=== PATIENT | male | born 1970 | race Caucasian/White ===

== ENCOUNTER 2016-08-26 10:02 | Inpatient (IN) ==
[2016-08-24 18:04] LABS: Basophils # (Auto) 0 K/mcL (0.0-0.3); Basophils % (Auto) 0.3 % (0.0-2.0); Eosinophils # (Auto) 0.3 K/mcL (0.0-0.7); Eosinophils % (Auto) 2.3 % (0.0-7.0); Granulocytes % (Auto) 62.2 % (38.0-78.0); Lymphocytes # (Auto) 2.7 K/mcL (1.5-4.8); Lymphocytes % (Auto) 22.2 % (15.5-49.0); Mean Cell Volume 92.3 fL (80.0-100.0); Mean Corpuscular HGB Conc 33.2 g/dL (31.0-36.0); Mean Corpuscular Hemoglobin 30.7 pg (26.0-34.0); Monocytes # (Auto) 1.6 K/mcL (0.1-0.9); Platelet Count 320 K/mcL (140-440); RBC 4.33 M/mcL (4.50-5.90); Red Cell Distribution Width 13.7 % (11.5-14.5)
[2016-08-24 18:08] LABS: Blood Urea Nitrogen 18 mg/dl (6-20)
[2016-08-24 19:34] LABS: Appearance,Urine CLEAR; Bacteria,Urine 0 /hpf (0); Bilirubin,Urine NEG (NEG); Color,Urine YELLOW; Glucose,Urine (UA) NEGATIVE (NEG); Leukocyte Esterase,Urine NEG /uL (NEG); Mucus,Urine FEW /hpf (0); Nitrate,Urine NEG (NEG); Protein,Urine NEG (NEG); Specific Gravity,Urine 1.027 (1.000-1.035); Urine Blood 0.03 mg/dL (<0.03); Urine RBC 23 /hpf (0-1); Urine Squamous Epithelial Cell 0 /hpf (0-4); Urine WBC 1 /hpf (0-4); Urobilinogen,Urine NEG (NEG)
[~2016-08-26 10:02] MED LIST: KETOROLAC 30 MG, ROPIVACAINE HCL/PF 49.5 ML, EPINEPHrine 0.5 MG, 0.9 % SODIUM CHLORIDE ... IJ ONE; ceFAZolin 1 GM VIAL IV SCH
[2016-08-26] MEDS ORDERED: MIDAZOLAM 5 MG/5 ML VIAL IV ONE (11:50)
[2016-08-26] MEDS ORDERED: ROPIVACAINE HCL/PF 30 ML VIAL IJ ONE (11:50)
[2016-08-26] MEDS ORDERED: PROPOFOL 200 MG/20 ML VIAL IV ONE (11:50)
[2016-08-26] MEDS ORDERED: TRANEXAMIC ACID 1,000 MG/10 ML VIAL IV ONE ×2 (11:50→14:18)
[2016-08-26] MEDS ORDERED: GLYCOPYRROLATE 0.2 MG/ML VIAL IV ONE (11:50)
[2016-08-26] MEDS ORDERED: PHENYLEPHRINE 10 MG/ML VIAL IV ONE (11:50)
[2016-08-26] MEDS ORDERED: ONDANSETRON 4 MG/2 ML VIAL IV ONE (11:50)
[2016-08-26] MEDS ORDERED: KETAMINE 100 MG/ML ML IV ONE (11:50)
[2016-08-26] MEDS ORDERED: LIDOCAINE HCL/PF 100 MG/5 ML SYRINGE IV ONE (11:50)
[2016-08-26] MEDS ORDERED: GENTAMICIN SULFATE 800 MG/20 ML VIAL IR ONE (12:32)
[2016-08-26] MEDS ORDERED: BENZOCAINE/MENTHOL 1 LOZENGE PO PRN (14:07)
[2016-08-26] MEDS ORDERED: IPRATROPIUM/ALBUTEROL 3 ML AMPUL.NEB NEB PRN (14:07)
[2016-08-26] MEDS ORDERED: METHOCARBAMOL 1,000 MG/10 ML VIAL IV PRN (14:07)
[2016-08-26] MEDS ORDERED: MEPERIDINE 25 MG/ML SYRINGE IV PRN (14:07)
[2016-08-26] MEDS ORDERED: ONDANSETRON 4 MG/2 ML VIAL IV PRN ×2 (14:07→14:21)
[2016-08-26] MEDS ORDERED: fentaNYL 100 MCG/2 ML VIAL IV PRN (14:07)
[2016-08-26] MEDS ORDERED: METOPROLOL TARTRATE 5 MG/5 ML VIAL IV PRN (14:07)
[2016-08-26] MEDS ORDERED: KETOROLAC 30 MG/ML VIAL IV PRN (14:07)
[2016-08-26] MEDS ORDERED: LACTATED RINGERS 1,000 ML IV SCH (14:15)
[2016-08-26] MEDS ORDERED: FLEETS ADULT ENEMA PR PRN (14:18)
[2016-08-26] MEDS ORDERED: MAGNESIUM HYDROXIDE 30 ML ORAL.SUSP PO PRN (14:18)
[2016-08-26] MEDS ORDERED: BISACODYL 10 MG SUPP.RECT PR PRN (14:18)
[2016-08-26] MEDS ORDERED: POLYETHYLENE GLYCOL 3350 17 GM PACKET PO PRN (14:18)
[2016-08-26] MEDS: ACETAMINOPHEN 1,000 MG/100 ML BOTTLE IV SCH ×2 (14:35→20:08)
--- NOTE | 2016-08-26 15:15 | XRay Report ---
HISTORY: Reason for Exam:Post-op total knee FINDINGS: There is a well positioned total knee prosthesis. A 4 x 8 mm bone chip is seen adjacent to the lateral border of the prosthetic lateral tibial plateau. There is an old ununited fracture along the top of the head of the fibula. There are two metallic surgical implants in the proximal fibula which were present on the preoperative x-ray. IMPRESSION: Well-positioned left knee prosthesis Interpreted and Authenticated by: Derrick Marion 08/26/16
--- NOTE | 2016-08-26 15:56 | Brief Operative Note ---
Date of procedure: 08/26/16 Pre-op diagnosis: DJD left knee Post-op diagnosis: same Procedure: Left TKR Grafts/Implants: Yes (Depuy TC3) Anesthesia: LENORE Surgeon: Siddharth Rubio Learning Disabilities Teacher: Kevin Lanier Estimated blood loss (cc): 100 Tourniquet Time (Minutes): 96 Specimens Removed/Pathology: none sent Condition: stable Disposition: floor
[2016-08-26] MEDS: DEXTROSE 5%-1/2NS W/20MEQ KCL 1,000 ML IV SCH (16:40)
[2016-08-26] MEDS: ONDANSETRON 4 MG/2 ML VIAL IV PRN ×2 (17:09→20:52)
[2016-08-26] MEDS: BENZOCAINE/MENTHOL 1 LOZENGE PO PRN ×2 (17:21→20:09)
[2016-08-26] MEDS: ENOXAPARIN 30 MG/0.3 ML SYRINGE SQ SCH (20:08)
[2016-08-26] MEDS: METHOCARBAMOL 750 MG TABLET PO PRN ×2 (20:09→21:58)
[2016-08-26] MEDS: DOCUSATE SODIUM 100 MG CAPSULE PO SCH ×2 (20:09→22:00)
[2016-08-26] MEDS: SENNOSIDES 1 TABLET PO SCH ×2 (20:09→22:00)
[2016-08-26] MEDS: HYDROcodone/APAP 10/325MG TABLET PO PRN (21:59)
[2016-08-26] MEDS: 0.9 % SODIUM CHLORIDE 10 ML SYRINGE IV SCH (23:09)
[2016-08-27] MEDS: HYDROcodone/APAP 10/325MG TABLET PO PRN ×4 (01:58→15:48)
[2016-08-27] MEDS: ACETAMINOPHEN 1,000 MG/100 ML BOTTLE IV SCH ×2 (02:24→10:58)
[2016-08-27] MEDS: DEXTROSE 5%-1/2NS W/20MEQ KCL 1,000 ML IV SCH ×2 (04:01→12:59)
[2016-08-27] MEDS: BENZOCAINE/MENTHOL 1 LOZENGE PO PRN (06:48)
[2016-08-27] MEDS: 0.9 % SODIUM CHLORIDE 10 ML SYRINGE IV SCH ×2 (08:04→15:49)
--- NOTE | 2016-08-27 08:59 | Operative Note ---
DATE OF OPERATION: 08/26/2016 PREOPERATIVE DIAGNOSIS: Posttraumatic arthritis of the left knee. POSTOPERATIVE DIAGNOSIS: Posttraumatic arthritis of the left knee. OPERATION: 1. Left total knee replacement. 2. Removal of hardware from the left tibia. SURGEON: Siddharth Rubio MD. [employer] MICA: Kevin Lanier PA-C. ANESTHESIA: General. TOURNIQUET TIME: 96 minutes. ESTIMATED BLOOD LOSS: 100 mL. SUMMARY OF PROCEDURE: General anesthesia was attained. The left leg was prepped and draped. An thigh-level tourniquet was put up at 300 mmHg. A midline incision was made from the quadriceps to the tibial tubercle. It was taken down sharply through the subcutaneous fat. The quadriceps and medial retinaculum was split longitudinally. The patella was mobilized laterally. The anterior menisci were resected. The ACL was released. The intramedullary canal of the femur was exposed. It was then drilled and reamed. The patient had no flexion contracture. A distal cut was made at about 10 mm. This femur sized to a 5. The anterior, posterior and bevel cuts were made. Attention was then turned to the tibia. The guide system was placed after drilling and reaming. A proximal cut was made 5 mm below the low point of the medial compartment. Alignment was confirmed with long alignment guide. Flexion was set at 5 degrees. The proximal cut was made. The tibia sized to a 5 as well. The box cuts were then made in the femur using the guide system. Trial showed an excellent combination of full range of motion with medial and lateral stability and anterior and posterior stability in flexion, partial flexion and extension. This was a TC3 component. Of note, prior to placing the intramedullary canal in the tibia, the obstructing screw from previous surgery was removed. This was an AO screw. This was done with a screwdriver after locating the head clinically medial to the tibial tubercle. The bone surfaces were irrigated. The patella was everted. I used calipers to do a measured resection of the patella from 26 mm thickness down to 14. The patella sized to a 41. A lateral facetectomy was done for overlying cartilage and bone. The no-touch test showed a lateral release was not indicated. The bone surfaces were thoroughly irrigated. The components were cemented in. Excess cement was removed after full curing of the cement in full extension. The tourniquet was let down. All bleeding points were coagulated. The quadriceps and medial retinaculum were closed with buried simple sutures of 0 FiberWire. The subcutaneous tissue was closed with interrupted 2-0 Monocryl. The skin was closed with Dura-Cortez. The deeper layers were infiltrated with 50 mL of multimodal mixture for postoperative analgesia. After the skin closure, a sterile compressive dressing was applied. The sponge and needle count was correct. The patient tolerated the procedure well and was taken to the recovery room in stable condition. [email or web address] Job ID: [id number] Doc ID: [id number] Siddharth Rubio MD
[2016-08-27] MEDS: DOCUSATE SODIUM 100 MG CAPSULE PO SCH (10:59)
[2016-08-27] MEDS: ENOXAPARIN 30 MG/0.3 ML SYRINGE SQ SCH (11:18)
--- NOTE | 2016-08-27 16:44 | Orthopedic Progress Note ---
Subjective Patient information: Note initiated : 08/27/16 at 4:42 pm Service Date, if different from initiated Date: [] Patient: Solo Nunez 46 y/o M admitted on 08/26/16 for Left Total Knee Arthroplasty with Poss Hardware . Chief Complaint: [] Principal diagnosis: feels "solid" on left knee Interval history: L TKR yesterday Objective Vital signs: Vital Signs Temp Pulse Resp BP BP BP Pulse Ox 08/27/16 12:00 97.5 F 16 161/73 95 08/27/16 08:00 98.7 F 20 128/67 99 08/27/16 04:00 98.6 F 91 H 18 142/96 99 08/27/16 00:09 97.9 F 74 16 104/67 96 08/26/16 20:00 98.7 F 69 18 130/69 95 08/26/16 18:28 98.1 F 90 20 122/79 95 08/26/16 17:10 108/64 96 Intake and Output 08/27/16 08/27/16 08/27/16 05:59 13:59 21:59 Intake Total 420 / 420 620 / 620 Output Total 400 / 400 Balance 620 / 620 Intake: Oral 420 / 420 620 / 620 Output: Void Amount 400 / 400 Other: Meal Lunch Percent of Meal Consumed 100% Feeding Ability Independent Weight 380 lb Patient Weight 08/28/16 05:59 Weight 380 lb Intake & Output: Intake & Output 08/27/16 08/27/16 08/27/16 05:59 13:59 21:59 Intake Total 420 / 420 620 / 620 Output Total 400 / 400 Balance 620 / 620 Weight 380 lb Intake: Oral 420 / 420 620 / 620 Output: Void Amount 400 / 400 Other: Meal Lunch Percent of Meal Consumed 100% Feeding Ability Independent Incision: Yes clean and dry Incision clean and dry: Yes Weight bearing status: full Neurological exam IM: Yes alert, Yes motor sensory intact Extremities exam IM: Yes Foot pink and warm - Diagnostic Results Knee x-ray: image reviewed (well aligned TKR; no complications) - Labs CBC & BMP: 08/27/16 05:25 08/24/16 15:59 Labs: 08/27/16 08/24/16 05:25 15:59 Hgb 10.4 L 13.3 L Hct 30.3 L 40.0 L Assessment and Plan (1) Total knee replacement status doing well . Homw on [place], Lovenox, and Robaxin Status: Acute
[2016-08-27] MEDS ORDERED: FLU VACC QS2016-17 36MOS UP/PF 60 MCG/0.5 ML SYRINGE IM ONE (17:33)
== END 2016-08-27 17:45 | disposition home or self-care (01) | DRG 470 ==
LOC: MEDSUR 10:02
PROVIDERS: ADMIT Orthopaedic Surgery Foot and Ankle Surgery; ATTEND Orthopaedic Surgery Foot and Ankle Surgery